=== PATIENT | female | born 1930 | race Asian ===

== ENCOUNTER 2018-08-03 16:46 | Emergency (ER) | payer MEDICARE ==
[~2018-08-03] VITALS: Ht 149.9 cm; Wt 54.4 kg
--- NOTE | 2018-08-03 17:07 | NUR ---
Dr Ramirez at the bedside for MSE.
--- NOTE | 2018-08-03 17:51 | NUR ---
Patient discharged to home in stable conditon. Written and verbal after care instructions given. Patient verbalizes understanding of instructions.
[2018-08-03 17:55] VITALS: BP 155/90
== END 2018-08-03 17:55 | disposition home or self-care (01) ==
LOC: ER 16:48
DX: S62.511A Displaced fracture of proximal phalanx of right thumb, initial encounter for closed fracture (principal); S60.041A Contusion of right ring finger without damage to nail, initial encounter; S60.051A Contusion of right little finger without damage to nail, initial encounter; I10 Essential (primary) hypertension; Z88.2 Allergy status to sulfonamides; W01.0XXA Fall on same level from slipping, tripping and stumbling without subsequent striking against object, initial encounter; Y93.89 Activity, other specified; Y92.89 Other specified places as the place of occurrence of the external cause; Y99.8 Other external cause status
CPT/HCPCS: 73130; A4663

== ENCOUNTER 2018-12-26 11:56 | Emergency (ER) | payer MEDICARE ==
[~2018-12-26] VITALS: Ht 157.5 cm; Wt 57.6 kg
[2018-12-26] MEDS ORDERED: TRAMADOL HCL 50 MG TABLET PO ONE (12:45)
[2018-12-26] MEDS ORDERED: TRAMADOL HCL 50 MG TABLET ONE (12:48)
--- NOTE | 2018-12-26 13:17 | NUR ---
Patient does not wish to proceed with medical care recommended by ( emelia ). Patient given information related to possible complications, up to and including , which could occur as a result of leaving the hospital at this time. Patient verbalizes understanding of risks involved due to leaving against medical advice. Patient has signed AMA form.pt accompanied by daughter.
== END 2018-12-26 13:19 | disposition left against medical advice (07) ==
LOC: ER 11:59
DX: M54.5 Low back pain (principal); Z88.2 Allergy status to sulfonamides
CPT/HCPCS: A4663